=== PATIENT | female | born 1955 | race Caucasian/White ===

== ENCOUNTER 2024-04-01 11:26 | Emergency (ER) | payer OTHER, MEDICARE ==
[2024-04-01] MEDS: Acetaminophen 500 MG Tab PO ONE (11:44)
== END 2024-04-01 12:28 | disposition home or self-care (01) ==
LOC: JP.ED 11:26
DX: M54.2 Cervicalgia (principal); V49.40XA Driver injured in collision with unspecified motor vehicles in traffic accident, initial encounter; Y92.410 Unspecified street and highway as the place of occurrence of the external cause
CPT/HCPCS: 99283; 99284; A9270